=== PATIENT | female | born 1985 | race Caucasian/White ===

== ENCOUNTER → 2024-03-03 | Outpatient (CLI) | payer MEDICAID, SELFPAY ==
--- NOTE | 2024-03-03 13:40 | XR_ITS ---
Examination: Pelvic ultrasound, transabdominal, complete Technique: Transabdominal ultrasound of the pelvis performed using grayscale imaging Date and time of exam: March 03, 2024 1344 hours INDICATIONS: Intrauterine device placement 3 years ago FINDINGS: Uterus 8.1 x 3.1 x 3.9 cm Intrauterine device low in position in the lower uterine segment near the cervix Endometrial stripe 10 mm Right ovary 3.9 x 2.4 cm arterial flow Left ovary 3.8 x 2.2 cm arterial flow No fluid in the cul-de-sac IMPRESSION: Intrauterine device abnormally low in position in the lower uterine segment near the cervix
== END | disposition home or self-care (01) ==
LOC: CDIM 13:20
PROVIDERS: PCP Nurse Practitioner Family; Referring Provider Nurse Practitioner Family; Visit Provider Nurse Practitioner Family
DX: N89.8 Other specified noninflammatory disorders of vagina (principal); N92.6 Irregular menstruation, unspecified; Z97.5 Presence of (intrauterine) contraceptive device
CPT/HCPCS: 76856

== ENCOUNTER → 2024-11-22 | Outpatient (CLI) | payer MEDICAID, SELFPAY ==
--- NOTE | 2024-11-22 15:45 | XR_ITS ---
Examination: Transvaginal ultrasound of the pelvis, complete Technique: Transvaginal sonographic images pelvis performed using caceres scale imaging Exam date and time: November 22, 2024 1551 hours INDICATIONS: Pelvic pain beginning 2 months ago FINDINGS: Uterus 8.3 cm endometrial stripe 0.8 cm No uterine mass or intrauterine gestation Right ovary 4.4 cm arterial flow small follicles, the largest 19 mm Minimal free fluid adjacent to the right ovary Left ovary 2.8 cm arterial flow small follicles Mild fluid in the cul-de-sac IMPRESSION: No uterine mass or intrauterine gestation Bilateral small ovarian follicles Minimal free fluid adjacent to the right ovary, consider recent partial rupture of one of the ovarian follicular cysts on the right
== END | disposition home or self-care (01) ==
PROVIDERS: PCP Nurse Practitioner Family; Referring Provider Nurse Practitioner Family; Visit Provider Nurse Practitioner Family
DX: N89.8 Other specified noninflammatory disorders of vagina (principal); Z32.02 Encounter for pregnancy test, result negative; Z78.9 Other specified health status
CPT/HCPCS: 76830